=== PATIENT | female | born 1995 | race Two or more races ===

== ENCOUNTER → 2021-09-22 | Outpatient (CLI) | payer OTHER ==
[2021-09-22 17:54] LABS: HEMATOCRIT 33.9 % (36.0-47.0); HEMOGLOBIN 11.3 g/dl (12.0-15.5); MEAN CORPUSCULAR HEMOGLOBIN 30.8 pg (27.0-33.0); MEAN CORPUSCULAR HGB CONC 33.3 g/dl (32.0-36.5); MEAN CORPUSCULAR VOLUME 92.4 fl (80.0-96.0); PLATELET COUNT, AUTOMATED 241 10^3/uL (150-450); RED BLOOD COUNT 3.67 10^6/uL (4.00-5.40); WHITE BLOOD COUNT 8.9 10^3/uL (4.0-10.0)
[2021-09-22 19:12] LABS: HEPATITIS C VIRUS ABY INDEX 0.1 INDEX (<0.8); HIV 1&2 SCREEN CENTAUR NEGATIVE (NEGATIVE)
[2021-09-23 00:08] LABS: GC DNA AMPLIFICATION NEGATIVE (NEGATIVE)
== END ==
LOC: M PLALAB 14:11
PROVIDERS: ATTEND Advanced Practice Midwife
DX: Z34.01 Encounter for supervision of normal first pregnancy, first trimester (principal)

== ENCOUNTER → 2021-10-08 | Outpatient (CLI) | payer OTHER | LOC: M PLALAB 12:40 | PROVIDERS: ATTEND Advanced Practice Midwife | DX: Z34.01 Encounter for supervision of normal first pregnancy, first trimester (principal) ==

== ENCOUNTER → 2022-01-01 | Outpatient (CLI) | payer OTHER | LOC: M WHC 13:05 | PROVIDERS: ATTEND Obstetrics & Gynecology | DX: Z36.2 Encounter for other antenatal screening follow-up (principal); Z3A.23 23 weeks gestation of pregnancy ==

== ENCOUNTER → 2022-01-19 | Outpatient (CLI) | payer OTHER | LOC: M WHC 13:03 | PROVIDERS: ATTEND Obstetrics & Gynecology | DX: Z36.89 Encounter for other specified antenatal screening (principal); Z3A.25 25 weeks gestation of pregnancy ==

== ENCOUNTER → 2022-01-27 | Outpatient (CLI) | payer OTHER ==
[2022-01-27 14:02] LABS: HEMATOCRIT 32.1 % (36.0-47.0); HEMOGLOBIN 10.4 g/dl (12.0-15.5); MEAN CORPUSCULAR HEMOGLOBIN 29.8 pg (27.0-33.0); MEAN CORPUSCULAR HGB CONC 32.4 g/dl (32.0-36.5); PLATELET COUNT, AUTOMATED 287 10^3/uL (150-450); RED BLOOD COUNT 3.49 10^6/uL (4.00-5.40); WHITE BLOOD COUNT 9.8 10^3/uL (4.0-10.0)
[2022-01-27 15:38] LABS: GC DNA AMPLIFICATION NEGATIVE (NEGATIVE)
== END ==
LOC: M PLALAB 10:23
PROVIDERS: ATTEND Obstetrics & Gynecology
DX: Z36.89 Encounter for other specified antenatal screening (principal); Z3A.22 22 weeks gestation of pregnancy

== ENCOUNTER → 2022-03-16 | Outpatient (CLI) | payer OTHER ==
[2022-03-16 15:21] LABS: ALBUMIN 2.5 GM/DL (3.2-5.2); ALT/SGPT 27 U/L (12-78); BILIRUBIN,TOTAL 0.6 MG/DL (0.2-1.0); BLOOD UREA NITROGEN 8 MG/DL (7-18); CALCIUM LEVEL 10.3 MG/DL (8.5-10.1); CARBON DIOXIDE LEVEL 23 MEQ/L (21-32); CHLORIDE LEVEL 108 MEQ/L (98-107); CREATININE FOR GFR 0.57 MG/DL (0.55-1.30); GLOMERULAR FILTRATION RATE > 60.0 (>60); GLUCOSE, FASTING 152 MG/DL (70-100); SODIUM LEVEL 139 MEQ/L (136-145); TOTAL PROTEIN 6.5 GM/DL (6.4-8.2)
== END ==
LOC: M PLALAB 10:39
PROVIDERS: ATTEND Obstetrics & Gynecology
DX: L29.9 Pruritus, unspecified (principal)

== ENCOUNTER → 2022-04-01 | Outpatient (REF) | payer OTHER | LOC: M SFHCWAGY 16:45 | PROVIDERS: ATTEND Advanced Practice Midwife | DX: Z34.83 Encounter for supervision of other normal pregnancy, third trimester (principal); Z3A.00 Weeks of gestation of pregnancy not specified ==

== ENCOUNTER → 2022-04-10 | Outpatient (CLI) | payer OTHER | LOC: M WHC 12:01 | PROVIDERS: ATTEND Advanced Practice Midwife | DX: O26.843 Uterine size-date discrepancy, third trimester (principal); Z3A.37 37 weeks gestation of pregnancy ==

== ENCOUNTER → 2022-04-21 | Outpatient (CLI) | payer OTHER | LOC: M WHC 08:56 | PROVIDERS: ATTEND Advanced Practice Midwife | DX: O36.60X0 Maternal care for excessive fetal growth, unspecified trimester, not applicable or unspecified (principal); Z3A.38 38 weeks gestation of pregnancy ==

== ENCOUNTER 2022-04-24 13:10 | Inpatient (IN) | payer OTHER ==
[~2022-04-24] VITALS: Ht 167.6 cm; Wt 100.7 kg
[2022-04-24] VITALS (7 sets, daily range): BP systolic 126–142; BP diastolic 73–95
[2022-04-24] MEDS ORDERED: PRENTAB9 PO (13:27)
[2022-04-24] MEDS ORDERED: HOME MED LIST COMPLETE! XX SCH (13:30)
[2022-04-24] MEDS ORDERED: LACTATED RINGER'S 1000 ML IV STA (13:59)
[2022-04-24] MEDS ORDERED: LIDOCAINE 1% MDV 20ML VIAL INFIL PRN (14:00)
[2022-04-24] MEDS ORDERED: OXYTOCIN INJ 10UNITS/ML 1ML VIAL IM PRN (14:00)
[2022-04-24] MEDS ORDERED: CARBOPROST TROMETHAMINE 250 MCG/ML AMP IM PRN (14:00)
[2022-04-24] MEDS ORDERED: TRANEXAMIC ACID INJection 1,000 MG in NS 100 ML IV PRN (14:00)
[2022-04-24] MEDS ORDERED: METHYLERGONOVINE MALEATE 0.2 MG/ML VIAL (J2210) IM PRN (14:00)
[2022-04-24] MEDS ORDERED: OXYTOCIN DRIP 30 UNITS in IV 1 EA IV PRN (14:00)
[2022-04-24 15:20] LABS: URIC ACID 9.8 MG/DL (3.1-7.8)
[2022-04-24 15:22] LABS: LDH LACTATE DEHYDROGENASE 149 U/L (120-246)
[2022-04-24 15:23] LABS: ALT/SGPT 12 U/L (7.0-40); AST/SGOT 23 U/L (<34); BILIRUBIN,TOTAL 0.7 MG/DL (0.3-1.2); CREATININE FOR GFR 0.69 MG/DL (0.55-1.30); GLOMERULAR FILTRATION RATE > 60.0 (>60)
[2022-04-24 16:08] LABS: TOTAL PROTEIN,RANDOM URINE 71.8 MG/DL (0.0-14.0)
[2022-04-24 16:13] LABS: CREATININE,RANDOM URINE 45.3 MG/DL
[2022-04-24 18:25] LABS: HEMATOCRIT 31.7 % (36.0-47.0); HEMOGLOBIN 10.5 g/dl (12.0-15.5); MEAN CORPUSCULAR HEMOGLOBIN 29.2 pg (27.0-33.0); MEAN CORPUSCULAR HGB CONC 33.1 g/dl (32.0-36.5); MEAN CORPUSCULAR VOLUME 88.1 fl (80.0-96.0); PLATELET COUNT, AUTOMATED 269 10^3/uL (150-450); WHITE BLOOD COUNT 7.3 10^3/uL (4.0-10.0)
[2022-04-24] MEDS ORDERED: BUTORPHANOL 2 MG/ML 1ML VIAL IV ONE (20:35)
[2022-04-24] MEDS ORDERED: PROMETHAZINE 25MG/ML 1ML VIAL IV ONE (20:35)
[2022-04-25] VITALS (62 sets, daily range): BP systolic 97–158; BP diastolic 52–97
[2022-04-25] MEDS ORDERED: LR 1,000 ML IV SCH (00:05)
[2022-04-25] MEDS ORDERED: OXYTOCIN DRIP 30 UNITS in IV 1 EA IV SCH (00:05)
[2022-04-25] MEDS ORDERED: FENTANYL 2MCG/ML ROPIVACAINE 0.2% IN 0.9% NACL 100ML IVBAG As Ordered ONE (02:50)
[2022-04-25] MEDS: FENTANYL/ROPIVACAINE/NACL BAG 100 ML EPIDURAL SCH ×2 (02:55→10:56)
[2022-04-25] MEDS ORDERED: EPIDURAL/PCA KEYS XX PRN (02:55)
[2022-04-25] MEDS ORDERED: LIDOCAINE 1% MDV 20ML VIAL As Ordered ONE (15:29)
[2022-04-25] MEDS ORDERED: LIDOCAINE 1% MDV 20ML VIAL IM ONE (15:35)
[2022-04-25 16:30] LABS: CORD GAS ABE V -3.2; CORD GAS HCO3 V 21.9 MEQ/L; CORD GAS O2 SAT V 85.1 %; CORD GAS PCO2 V 39.9 mmHg; CORD GAS PH V 7.357 UNITS; CORD GAS PO2 V 37.2 mmHg; CORD GAS SBC V 21.5 MEQ/L; CORD GAS TCO2 V 23.1 MEQ/L
[2022-04-25 16:32] LABS: CORD GAS ABE A -4.8; CORD GAS HCO3 A 20.8 MEQ/L; CORD GAS O2 SAT A 90.9 %; CORD GAS PCO2 A 40.4 mmHg; CORD GAS PH A 7.329 UNITS; CORD GAS PO2 A 47.3 mmHg; CORD GAS SBC A 20.4 MEQ/L
[2022-04-25] MEDS ORDERED: RHOGAM 300 MCG (1500 IU) INJ (J2790) IM SCH (18:20)
[2022-04-25] MEDS ORDERED: DOCUSATE SODIUM 100MG CAPSULE PO PRN (18:20)
[2022-04-25] MEDS ORDERED: IBUPROFEN 600MG TAB PO PRN (18:20)
[2022-04-25] MEDS ORDERED: DIBUCAINE 1% OINTMENT 30GM TOP PRN (18:20)
[2022-04-25] MEDS ORDERED: ACETAMINOPHEN TAB 650MG DOSE (2X325MG) PO PRN (18:20)
[2022-04-25] MEDS ORDERED: METHYLERGONOVINE MALEATE 0.2 MG TAB PO PRN (18:20)
[2022-04-25] MEDS: ACETAMINOPHEN 500 MG TAB PO PRN (19:10)
[2022-04-25] MEDS ORDERED: AMPICILLIN SOD/SULBACTAM SOD 3 GM in D5W MINI-BAG PLUS 100 ML IV ONE (20:00)
[2022-04-25] MEDS: IBUPROFEN 800 MG TAB PO PRN (21:20)
[2022-04-25] MEDS ORDERED: diphenhydrAMINE 25MG CAP PO PRN (22:25)
[2022-04-26] MEDS: ACETAMINOPHEN 500 MG TAB PO PRN ×2 (01:10→08:35)
[2022-04-26 02:00] VITALS: BP 116/58
[2022-04-26] MEDS: IBUPROFEN 800 MG TAB PO PRN ×2 (05:05→12:34)
[2022-04-26 05:44] VITALS: BP 111/73
[2022-04-26] MEDS: PRENATAL VITAMINS CHEWABLE TABLET PO SCH (08:35)
[2022-04-26 08:54] LABS: HEMATOCRIT 24.1 % (36.0-47.0); HEMOGLOBIN 8.1 g/dl (12.0-15.5); MEAN CORPUSCULAR HEMOGLOBIN 29.3 pg (27.0-33.0); MEAN CORPUSCULAR HGB CONC 33.6 g/dl (32.0-36.5); MEAN CORPUSCULAR VOLUME 87.3 fl (80.0-96.0); PLATELET COUNT, AUTOMATED 155 10^3/uL (150-450); RED BLOOD COUNT 2.76 10^6/uL (4.00-5.40); WHITE BLOOD COUNT 14.6 10^3/uL (4.0-10.0)
[2022-04-26 10:00] VITALS: BP 112/72
[2022-04-26 14:11] VITALS: BP 105/59
[2022-04-26] MEDS ORDERED: OXYTOCIN 30 UNITS IN 0.9% NaCl 500ML IV BAG (J2590) ONE (15:06)
[2022-04-26] MEDS ORDERED: METHYLERGONOVINE MALEATE 0.2 MG/ML VIAL (J2210) ONE (15:06)
[2022-04-26] MEDS ORDERED: TRANEXAMIC ACID 100 MG/ML 10ML VIAL ONE (15:06)
[2022-04-26 18:03] VITALS: BP 108/69
[2022-04-27] MEDS: IBUPROFEN 800 MG TAB PO PRN (02:04)
[2022-04-27 02:07] VITALS: BP 108/58
[2022-04-27 06:09] VITALS: BP 120/67
[2022-04-27] MEDS: ACETAMINOPHEN 500 MG TAB PO PRN (08:03)
[2022-04-27] MEDS: PRENATAL VITAMINS CHEWABLE TABLET PO SCH (08:29)
[2022-04-27] MEDS ORDERED: MEASLES,MUMPS,RUBELLA VACCINE INJ (MMR-II) (90707) SC.IMMUN ONE (09:00)
[2022-04-27 10:45] VITALS: BP 111/67
[2022-04-27] MEDS ORDERED: COLA100C5 PO (13:01)
[2022-04-27] MEDS ORDERED: IBUP80TA PO (13:01)
[2022-04-27] MEDS ORDERED: ACET-683 PO (13:01)
[2022-04-27] MEDS ORDERED: FERR32TA PO (13:01)
[2022-04-27 14:00] VITALS: BP 114/65
== END 2022-04-27 15:56 | disposition home or self-care (01) | DRG 806 ==
LOC: M LDO 13:10 → M LDI 14:53 → M OBS 04-25 21:00
PROVIDERS: ADMIT Advanced Practice Midwife; ATTEND Specialist
PROC: 10D17Z9 Manual Extraction of Products of Conception, Retained, Via Natural or Artificial Opening (ICD-10-PCS; principal; 2022-04-25)
PROC: 10E0XZZ Delivery of Products of Conception, External Approach (ICD-10-PCS; 2022-04-25)
PROC: 0HQ9XZZ Repair Perineum Skin, External Approach (ICD-10-PCS; 2022-04-25)
PROC: 30233N1 Transfusion of Nonautologous Red Blood Cells into Peripheral Vein, Percutaneous Approach (ICD-10-PCS; 2022-04-25)
DX: O36.63X0 Maternal care for excessive fetal growth, third trimester, not applicable or unspecified (principal); Z37.0 Single live birth; O72.1 Other immediate postpartum hemorrhage; D64.9 Anemia, unspecified; Z3A.39 39 weeks gestation of pregnancy; O99.02 Anemia complicating childbirth; O66.0 Obstructed labor due to shoulder dystocia; O70.1 Second degree perineal laceration during delivery

== ENCOUNTER → 2022-08-24 | Outpatient (REF) | payer OTHER ==
[~2022-08-24] MED LIST: ACET-683 PO; COLA100C5 PO; FERR32TA PO; IBUP80TA PO; PRENTAB9 PO
== END ==
LOC: M SFHCWAGY 17:13
PROVIDERS: ATTEND Nurse Practitioner Family
DX: Z12.4 Encounter for screening for malignant neoplasm of cervix (principal); R87.610 Atypical squamous cells of undetermined significance on cytologic smear of cervix (ASC-US)
CPT/HCPCS: 87624; G0123; G0463

== ENCOUNTER → 2022-09-17 | Outpatient (REF) | payer OTHER | LOC: M SFHCWAGY 12:40 | PROVIDERS: ATTEND Nurse Practitioner Family | DX: N73.9 Female pelvic inflammatory disease, unspecified (principal) ==

== ENCOUNTER → 2022-10-01 | Outpatient (CLI) | payer OTHER ==
[2022-10-01 18:05] LABS: BASO # 0.1 10^3/uL (0.0-0.2); BASO % 0.5 % (0.0-1.0); EOS # 0.3 10^3/uL (0.0-0.5); EOS % 2.8 % (0.0-3.0); HEMATOCRIT 37.7 % (36.0-47.0); LYMPH # 3.6 10^3/uL (1.5-5.0); LYMPH % 35.1 % (24.0-44.0); MEAN CORPUSCULAR HGB CONC 31.8 g/dl (32.0-36.5); MEAN CORPUSCULAR VOLUME 84.9 fl (80.0-96.0); MONO # 0.6 10^3/uL (0.0-0.8); MONO % 5.6 % (2.0-8.0); NEUTROPHILS # 5.7 10^3/uL (1.5-8.5); NEUTROPHILS % 55.7 % (36.0-66.0); PLATELET COUNT, AUTOMATED 367 10^3/uL (150-450); RED BLOOD COUNT 4.44 10^6/uL (4.00-5.40); WHITE BLOOD COUNT 10.2 10^3/uL (4.0-10.0)
[2022-10-01 18:27] LABS: IRON (FE) 22 UG/DL (50-170)
[2022-10-01 18:28] LABS: ALBUMIN 4.1 G/DL (3.2-5.2); ALKALINE PHOSPHATASE 106 U/L (46-116); ALT/SGPT 53 U/L (7.0-40); AST/SGOT 32 U/L (<34); BILIRUBIN,TOTAL 0.5 MG/DL (0.3-1.2); BLOOD UREA NITROGEN 9 MG/DL (9-23); CALCIUM LEVEL 11.1 MG/DL (8.5-10.1); CARBON DIOXIDE LEVEL 29 MMOL/L (20-31); CHLORIDE LEVEL 100 MMOL/L (98-107); CREATININE FOR GFR 0.56 MG/DL (0.55-1.30); FERRITIN 30.9 NG/ML (7.3-270.7); FREE T4 1.08 NG/DL (0.89-1.76); GLOMERULAR FILTRATION RATE > 60.0 (>60); GLUCOSE, FASTING 83 MG/DL (60-100); PHOSPHORUS LEVEL 4.3 MG/DL (2.5-4.9); POTASSIUM SERUM 4.3 MMOL/L (3.5-5.1); SODIUM LEVEL 136 MMOL/L (136-145); THYROID STIMULATING HORMONE 3.747 uIU/ML (0.55-4.78); TOTAL IRON BINDING CAPACITY 369 UG/DL (250-425)
[2022-10-01 18:29] LABS: FOLATE > 24.0 NG/ML (>5.4); VITAMIN B12 LEVEL 274 PG/ML (211-911)
[2022-10-02 14:52] LABS: PTH INTACT 53.6 PG/ML (18.5-88.0)
[2022-10-02 14:53] LABS: TOTAL 25(OH) VITAMIN D 22.4 NG/ML (20.0-100.0)
== END ==
LOC: M PLALAB 16:31
PROVIDERS: ATTEND Nurse Practitioner Adult Health
DX: R53.83 Other fatigue (principal)

== ENCOUNTER → 2022-10-01 | Outpatient (REF) | payer OTHER | LOC: M SFHCWAGY 12:09 | PROVIDERS: ATTEND Advanced Practice Midwife | DX: R87.810 Cervical high risk human papillomavirus (HPV) DNA test positive (principal); R87.610 Atypical squamous cells of undetermined significance on cytologic smear of cervix (ASC-US) ==

== ENCOUNTER 2022-10-12 13:17 | Outpatient (CLI) | payer OTHER ==
[~2022-10-12] VITALS: Ht 167.6 cm; Wt 92.3 kg
[2022-10-12 13:30] VITALS: BP 121/65
[2022-10-12] MEDS ORDERED: FERRIC CARBOXYMALTOSE INJ 750 MG in NS 250 ML (>50kg) IV ONE ×3 (14:00)
[2022-10-12 14:55] VITALS: BP 113/67
== END 2022-10-12 15:05 ==
LOC: M INFU 13:17
PROVIDERS: ATTEND Nurse Practitioner Adult Health
DX: D50.9 Iron deficiency anemia, unspecified (principal)
CPT/HCPCS: 96365; J1439

== ENCOUNTER 2022-10-19 13:42 | Outpatient (CLI) | payer OTHER ==
[~2022-10-19] VITALS: Ht 167.6 cm; Wt 92.7 kg
[2022-10-19] MEDS ORDERED: FERRIC CARBOXYMALTOSE INJ 750 MG in NS 250 ML (>50kg) IV ONE ×3 (14:00)
[2022-10-19 15:25] VITALS: BP 120/73; O2SAT 100
== END 2022-10-19 15:25 | disposition home or self-care (01) ==
LOC: M INFU 13:42
PROVIDERS: ATTEND Nurse Practitioner Adult Health
DX: D50.9 Iron deficiency anemia, unspecified (principal)
CPT/HCPCS: 96365; J1439

== ENCOUNTER → 2022-12-04 | Outpatient (CLI) | payer OTHER | LOC: M WHC 15:08 | PROVIDERS: ATTEND Nurse Practitioner Family | DX: R10.2 Pelvic and perineal pain (principal) ==

== ENCOUNTER → 2023-09-21 | Outpatient (REF) | payer OTHER ==
[2023-09-21 14:22] LABS: Trichomonas vaginalis (AMP) NOT DETECTED (NEGATIVE)
[2023-09-21 14:46] LABS: GC DNA AMPLIFICATION NEGATIVE (NEGATIVE)
== END ==
LOC: M SFHCWAGY 13:00
PROVIDERS: ATTEND Nurse Practitioner Family
DX: Z12.4 Encounter for screening for malignant neoplasm of cervix (principal); R87.610 Atypical squamous cells of undetermined significance on cytologic smear of cervix (ASC-US)
CPT/HCPCS: 87624; 87661; 87810; 87850; G0123

== ENCOUNTER → 2024-01-19 | Outpatient (CLI) | payer OTHER ==
[2024-01-19 18:10] LABS: HEMATOCRIT 35.6 % (36.0-47.0); MEAN CORPUSCULAR HEMOGLOBIN 31.1 pg (27.0-33.0); MEAN CORPUSCULAR HGB CONC 33.7 g/dl (32.0-36.5); MEAN CORPUSCULAR VOLUME 92.2 fl (80.0-96.0); PLATELET COUNT, AUTOMATED 272 10^3/uL (150-450); RED BLOOD COUNT 3.86 10^6/uL (4.00-5.40); WHITE BLOOD COUNT 12.1 10^3/uL (4.0-10.0)
[2024-01-19 19:09] LABS: HIV 1&2 SCREEN NEGATIVE (NEGATIVE)
[2024-01-19 19:17] LABS: HEPATITIS C VIRUS ABY INDEX < 0.02 INDEX (<0.8)
[2024-01-19 21:43] LABS: GC DNA AMPLIFICATION NEGATIVE (NEGATIVE)
== END ==
LOC: M PLALAB 16:01
PROVIDERS: ATTEND Obstetrics & Gynecology
DX: Z34.91 Encounter for supervision of normal pregnancy, unspecified, first trimester (principal)

== ENCOUNTER → 2024-03-24 | Outpatient (CLI) | payer OTHER | LOC: M PLALAB 15:54 | PROVIDERS: ATTEND Obstetrics & Gynecology | DX: Z34.92 Encounter for supervision of normal pregnancy, unspecified, second trimester (principal) ==

== ENCOUNTER → 2024-03-31 | Outpatient (CLI) | payer OTHER | LOC: M RAD 10:13 | PROVIDERS: ATTEND Obstetrics & Gynecology | DX: Z34.92 Encounter for supervision of normal pregnancy, unspecified, second trimester (principal); Z3A.19 19 weeks gestation of pregnancy ==

== ENCOUNTER → 2024-05-26 | Outpatient (CLI) | payer OTHER ==
[2024-05-26 13:38] LABS: HEMOGLOBIN 11.1 g/dl (12.0-15.5); MEAN CORPUSCULAR HGB CONC 32.6 g/dl (32.0-36.5); MEAN CORPUSCULAR VOLUME 91.9 fl (80.0-96.0); PLATELET COUNT, AUTOMATED 259 10^3/uL (150-450); WHITE BLOOD COUNT 10.9 10^3/uL (4.0-10.0)
[2024-05-26 14:02] LABS: GLUCOSE CHALLENGE TEST 1 HOUR 146 MG/DL (LESS THAN 140)
[2024-05-26 14:31] LABS: HIV 1&2 SCREEN NEGATIVE (NEGATIVE)
[2024-05-26 14:39] LABS: HEPATITIS C VIRUS ABY INDEX < 0.02 INDEX (<0.8)
[2024-05-26 15:53] LABS: GC DNA AMPLIFICATION NEGATIVE (NEGATIVE)
== END ==
LOC: M PLALAB 05-19 12:07
PROVIDERS: ATTEND Obstetrics & Gynecology
DX: Z34.92 Encounter for supervision of normal pregnancy, unspecified, second trimester (principal); Z3A.21 21 weeks gestation of pregnancy

== ENCOUNTER → 2024-06-06 | Outpatient (CLI) | payer OTHER | LOC: M LAB 06:22 | PROVIDERS: ATTEND Obstetrics & Gynecology | DX: O99.810 Abnormal glucose complicating pregnancy (principal); Z3A.00 Weeks of gestation of pregnancy not specified ==

== ENCOUNTER → 2024-06-14 | Outpatient (CLI) | payer OTHER | LOC: M WHC 12:16 | PROVIDERS: ATTEND Nurse Practitioner Family | DX: O09.299 Supervision of pregnancy with other poor reproductive or obstetric history, unspecified trimester (principal); O24.419 Gestational diabetes mellitus in pregnancy, unspecified control; Z3A.30 30 weeks gestation of pregnancy ==

== ENCOUNTER → 2024-07-13 | Outpatient (CLI) | payer OTHER | LOC: M RAD 15:14 | PROVIDERS: ATTEND Nurse Practitioner Family | DX: O24.419 Gestational diabetes mellitus in pregnancy, unspecified control (principal); Z3A.34 34 weeks gestation of pregnancy ==

== ENCOUNTER → 2024-07-21 | Outpatient (CLI) | payer OTHER ==
[2024-07-21 14:22] LABS: ALBUMIN 2.8 G/DL (3.2-5.2); ALKALINE PHOSPHATASE 149 U/L (35-104); ALT/SGPT 22 U/L (7.0-40); AST/SGOT 15 U/L (<34); BILIRUBIN,TOTAL 0.6 MG/DL (0.3-1.2); BLOOD UREA NITROGEN 11 MG/DL (9-23); CALCIUM LEVEL 10.3 MG/DL (8.5-10.1); CARBON DIOXIDE LEVEL 24 MMOL/L (20-31); CHLORIDE LEVEL 105 MMOL/L (98-107); CREATININE FOR GFR 0.42 MG/DL (0.55-1.30); GLOMERULAR FILTRATION RATE > 60.0 (>60); GLUCOSE, FASTING 116 MG/DL (60-100); POTASSIUM SERUM 4.4 MMOL/L (3.5-5.1); SODIUM LEVEL 141 MMOL/L (136-145)
[2024-07-21 14:36] LABS: URIC ACID 7.2 MG/DL (3.1-7.8)
== END ==
LOC: M PLALAB 10:39
PROVIDERS: ATTEND Nurse Practitioner Family
DX: O99.713 Diseases of the skin and subcutaneous tissue complicating pregnancy, third trimester (principal)

== ENCOUNTER → 2024-07-26 | Outpatient (REF) | payer OTHER | LOC: M PLALAB 10:01 | PROVIDERS: ATTEND Obstetrics & Gynecology | DX: Z3A.36 36 weeks gestation of pregnancy (principal) ==

== ENCOUNTER → 2024-07-28 | Outpatient (CLI) | payer OTHER | LOC: M WHC 08:01 | PROVIDERS: ATTEND Nurse Practitioner Family | DX: O24.419 Gestational diabetes mellitus in pregnancy, unspecified control (principal); Z3A.36 36 weeks gestation of pregnancy ==

== ENCOUNTER 2024-08-09 16:34 | Inpatient (IN) | payer OTHER ==
[~2024-08-09] VITALS: Ht 167.6 cm; Wt 91.4 kg
[2024-08-09] MEDS ORDERED: METF-839 PO (17:06)
[2024-08-09 17:08] VITALS: BP 112/66
[2024-08-09] MEDS ORDERED: OXYTOCIN DRIP 30 UNITS in IV 1 EA IV PRN (18:10)
[2024-08-09] MEDS ORDERED: CARBOPROST TROMETHAMINE 250 MCG/ML AMP IM PRN (18:10)
[2024-08-09] MEDS ORDERED: LIDOCAINE 1% MDV 20ML VIAL INFIL PRN (18:10)
[2024-08-09] MEDS ORDERED: OXYTOCIN INJ 10UNITS/ML 1ML VIAL IM PRN (18:10)
[2024-08-09 18:28] LABS: HEMATOCRIT 32.5 % (36.0-47.0); HEMOGLOBIN 10.7 g/dl (12.0-15.5); MEAN CORPUSCULAR HEMOGLOBIN 29.1 pg (27.0-33.0); MEAN CORPUSCULAR HGB CONC 32.9 g/dl (32.0-36.5); MEAN CORPUSCULAR VOLUME 88.3 fl (80.0-96.0); PLATELET COUNT, AUTOMATED 234 10^3/uL (150-450); RED BLOOD COUNT 3.68 10^6/uL (4.00-5.40); WHITE BLOOD COUNT 7.5 10^3/uL (4.0-10.0)
[2024-08-09 18:46] VITALS: BP 116/65
[2024-08-09] MEDS: miSOPROStol 50MCG 1/2 TABLET PO SCH (18:46)
[2024-08-09 19:39] LABS: HIV 1&2 SCREEN NEGATIVE (NEGATIVE)
[2024-08-09 19:47] LABS: HEPATITIS C VIRUS ABY INDEX 0.07 INDEX (<0.8)
[2024-08-10] VITALS (43 sets, daily range): BP systolic 87–140; BP diastolic 45–79; O2SAT 95
[2024-08-10] MEDS: LR 1,000 ML IV SCH (03:35)
[2024-08-10] MEDS: OXYTOCIN DRIP 30 UNITS in IV 1 EA IV SCH ×2 (06:06→14:47)
[2024-08-10] MEDS ORDERED: NALOXONE INJ 0.4MG/1ML VIAL IV PRN (07:50)
[2024-08-10] MEDS ORDERED: diphenhydrAMINE 50MG/ML VIAL IV PRN (07:50)
[2024-08-10] MEDS ORDERED: LR 500 ML IV PRN (07:50)
[2024-08-10] MEDS ORDERED: EPIDURAL/PCA KEYS XX PRN (07:50)
[2024-08-10] MEDS ORDERED: FENTANYL 2MCG/ML ROPIVACAINE 0.2% IN 0.9% NACL 100ML IVBAG As Ordered ONE (08:01)
[2024-08-10] MEDS ORDERED: HOME MED LIST COMPLETE! XX SCH (08:50)
[2024-08-10] MEDS ORDERED: METF500T13 PO (09:13)
[2024-08-10] MEDS: FENTANYL/ROPIVACAINE/NACL BAG 100 ML EPIDURAL SCH (09:54)
[2024-08-10] MEDS: ePHEDrine SULFATE 25 MG/5 ML(5MG/ML) SYRINGE IVP PRN (10:31)
[2024-08-10] MEDS: TRANEXAMIC ACID INJection 1,000 MG in NS 100 ML IV PRN (13:48)
[2024-08-10] MEDS: METHYLERGONOVINE MALEATE 0.2MG/ML 1ML VIAL IM PRN (13:52)
[2024-08-10] MEDS: OXYTOCIN DRIP 30 UNITS in IV 1 EA IV PRN (13:52)
[2024-08-10] MEDS ORDERED: DOCUSATE SODIUM 100MG CAPSULE PO PRN (14:15)
[2024-08-10] MEDS ORDERED: RHOGAM 300MCG (1500IU) INJ IM SCH (14:15)
[2024-08-10] MEDS ORDERED: IBUPROFEN 600MG TAB PO PRN (14:15)
[2024-08-10] MEDS ORDERED: ACETAMINOPHEN 325 MG TAB PO PRN (14:15)
[2024-08-10] MEDS ORDERED: METHYLERGONOVINE MALEATE 0.2 MG TAB PO PRN (14:15)
[2024-08-10] MEDS: ONDANSETRON 4MG 2ML VIAL IV PRN (14:47)
[2024-08-10] MEDS: PRENATAL VITAMINS CHEWABLE TABLET PO SCH (16:56)
[2024-08-10] MEDS: ACETAMINOPHEN 500 MG TAB PO PRN (18:02)
[2024-08-10] MEDS: IBUPROFEN 800 MG TAB PO PRN (22:56)
[2024-08-11 06:03] VITALS: BP 96/53; O2SAT 97
[2024-08-11] MEDS: DIBUCAINE 1% OINTMENT 30GM TOP PRN (08:42)
[2024-08-12] MEDS ORDERED: MEASLES,MUMPS,RUBELLA VACCINE INJ (MMR-II) SC.IMMUN ONE (09:00)
== END 2024-08-11 15:40 | disposition home or self-care (01) | DRG 807 ==
LOC: M LDI 16:34 → M OBS 08-10 16:40
PROVIDERS: ADMIT Advanced Practice Midwife; ATTEND Advanced Practice Midwife
PROC: 3E0P7GC Introduction of Other Therapeutic Substance into Female Reproductive, Via Natural or Artificial Opening (ICD-10-PCS; 2024-08-09)
PROC: 10E0XZZ Delivery of Products of Conception, External Approach (ICD-10-PCS; principal; 2024-08-10)
DX: O24.425 Gestational diabetes mellitus in childbirth, controlled by oral hypoglycemic drugs (principal); Z37.0 Single live birth; Z3A.38 38 weeks gestation of pregnancy; O36.63X0 Maternal care for excessive fetal growth, third trimester, not applicable or unspecified; O69.81X0 Labor and delivery complicated by cord around neck, without compression, not applicable or unspecified; Z79.84 Long term (current) use of oral hypoglycemic drugs

== ENCOUNTER → 2024-12-21 | Outpatient (CLI) | payer OTHER ==
[~2024-12-21] MED LIST changes: +METF-839 PO; +METF500T13 PO
[2024-12-21 15:23] LABS: CALCIUM LEVEL 9.8 MG/DL (8.5-10.1); CARBON DIOXIDE LEVEL 27 MMOL/L (20-31); CHLORIDE LEVEL 103 MMOL/L (98-107); CREATININE FOR GFR 0.56 MG/DL (0.55-1.30); GLOMERULAR FILTRATION RATE > 90.0 (>60); IRON (FE) 26 UG/DL (50-170); PERCENT SATURATION 8.1 % (13.2-45.0); POTASSIUM SERUM 4.0 MMOL/L (3.5-5.1); SODIUM LEVEL 139 MMOL/L (136-145)
[2024-12-21 15:25] LABS: FREE T4 0.95 NG/DL (0.89-1.76); TOTAL 25(OH) VITAMIN D 14.1 NG/ML (20.0-100.0); VITAMIN B12 LEVEL 423 PG/ML (211-911)
[2024-12-21 15:42] LABS: BASO # 0.1 10^3/uL (0.0-0.2); BASO % 0.6 % (0.0-1.0); EOS # 0.4 10^3/uL (0.0-0.5); EOS % 3.3 % (0.0-3.0); LYMPH # 3.8 10^3/uL (1.5-5.0); LYMPH % 35.3 % (24.0-44.0); MONO # 0.6 10^3/uL (0.0-0.8); MONO % 5.8 % (2.0-8.0); NEUTROPHILS # 5.9 10^3/uL (1.5-8.5); NEUTROPHILS % 54.6 % (36.0-66.0); PLATELET COUNT, AUTOMATED 269 10^3/uL (150-450)
== END ==
LOC: M PLALAB 13:10
PROVIDERS: ATTEND Nurse Practitioner Adult Health
DX: R53.83 Other fatigue (principal)

== ENCOUNTER 2025-01-16 13:27 | Outpatient (CLI) | payer OTHER ==
[~2025-01-16] VITALS: Ht 166.4 cm; Wt 85.4 kg
[~2025-01-16 13:27] MED LIST changes: +ALBUTEROL SULFATE 2.5 MG/0.5 ML INH CONCENTRATE NEB SOLN INH PRN; +EPINEPHrine INJ 1 MG/ML 1ML AMP IM PRN; +diphenhydrAMINE 50 MG/ML VIAL IV PRN
[2025-01-16 13:30] VITALS: BP 114/68; O2SAT 100
[2025-01-16] MEDS: FERRIC CARBOXYMALTOSE 750 MG (VIAL MATE) IN 100ML NS IV ONE (13:50)
[2025-01-16 14:33] VITALS: BP 113/74; O2SAT 67
== END 2025-01-16 14:36 ==
LOC: M INFU 13:27
PROVIDERS: ATTEND Nurse Practitioner Adult Health
DX: D50.9 Iron deficiency anemia, unspecified (principal)
CPT/HCPCS: 96365; J1439

== ENCOUNTER 2025-01-23 13:24 | Outpatient (CLI) | payer OTHER ==
[~2025-01-23] VITALS: Ht 166.4 cm; Wt 81.1 kg
[2025-01-23] MEDS ORDERED: ACETAMINOPHEN 650 MG PO ONE (13:30)
[2025-01-23] MEDS: FERRIC CARBOXYMALTOSE 750 MG (VIAL MATE) IN 100ML NS IV ONE (13:36)
[2025-01-23 13:59] VITALS: BP 106/63; O2SAT 99
== END 2025-01-23 14:04 | disposition home or self-care (01) ==
LOC: M INFU 13:24
PROVIDERS: ATTEND Nurse Practitioner Adult Health
DX: D50.9 Iron deficiency anemia, unspecified (principal)
CPT/HCPCS: 96365; J1439